=== PATIENT | male | born 1960 | race Caucasian/White ===

== ENCOUNTER → 2018-11-22 09:28 | Outpatient (CLI) | payer OTHER, SELFPAY ==
--- NOTE | 2018-11-22 09:35 | US_ITS ---
US FNA Thyroid HISTORY: Left thyroid mass ORDERING PHYSICIAN: Daryl Sampson MD PATIENT AGE: 58 years COMPARISON: None Prebiopsy ultrasound: The right lobe of the thyroid gland is enlarged at 4 x 2.4 cm with 2 solid-appearing nodules at 1.7 cm and a second nodule at 2.3 cm. The left lobe is enlarged 6.9 x 4.5 x 4.2 cm cm with heterogeneous echogenicity. There is multinodular contour with a dominant nodule in the mid polar region 5.5 x 4 cm with calcification centrally. This was the nodule that was targeted for biopsy. TECHNIQUE: Following obtaining informed consent, using aseptic technique and local anesthesia with buffered lidocaine, fine-needle aspiration was performed of the nodule of interest using sonographic guidance. 3 passes were made into the nodule with a 21 needle. Specimen was given to cytology. The patient tolerated the procedure well without evidence of immediate complications and left the ultrasound suite in stable condition. CYTOLOGY:Atypical IMPRESSION: Uneventful ultrasound-guided fine needle aspiration of left thyroid nodule showing atypical cytology.
== END ==
PROVIDERS: PCP Family Medicine; Visit Provider Otolaryngology
DX: E07.9 Disorder of thyroid, unspecified (principal)
CPT/HCPCS: 10005; 76536; 76942

== ENCOUNTER → 2018-11-30 12:05 | Outpatient (CLI) | payer OTHER, SELFPAY ==
--- NOTE | 2018-11-30 12:25 | XR_ITS ---
XR chest 2V HISTORY: ITS.REASON: HTN,COUGH ORDERING PHYSICIAN: Daryl Sampson MD PATIENT AGE: 58 years COMPARISON: None FINDINGS: The cardiomediastinal silhouette and pulmonary vascularity are within normal limits. The lungs are clear without infiltrates, suspicious nodules, or pleural effusions. No acute bony abnormalities. IMPRESSION: Negative chest, no acute finding
[2018-11-30 12:44] LABS: Basophils # 0.1 K/mm3 (0-0.2); Basophils % 0.8 % (0.1-2.0); Eosinophils # 0.1 K/mm3 (0.0-0.4); Eosinophils % 1.7 % (0.1-12.0); Hematocrit 47.8 % (42.0-52.0); Hemoglobin 15.1 g/dL (14.1-18.0); Lymphocytes # 1.7 K/mm3 (0.7-4.5); Lymphocytes % 28.8 % (10-50); Mean Corpuscular HGB Conc 31.6 g/dL (31.8-35.4); Mean Corpuscular Hemoglobin 27.6 pg (27.0-31.2); Mean Corpuscular Volume 87.3 fl (80-94); Mean Platelet Volume 7.2 fl (7.4-10.4); Monocytes # 0.5 K/mm3 (0.1-1.0); Monocytes % 7.7 % (1.7-9.3); Neutrophils # 3.7 K/mm3 (1.8-7.8); Neutrophils % 60.9 % (37.0-80.0); Platelet Count 261 K/mm3 (142-424); Red Blood Count 5.47 M/mm3 (4.60-6.20); Red Cell Distribution Width 13.9 % (11.5-17.5)
[2018-11-30 15:26] LABS: Alanine Aminotransferase 37 U/L (12-78); Albumin Level 3.7 gm/dL (3.4-5.0); Alkaline Phosphatase 84 U/L (46-116); Anion Gap 11.4 mEq/L (5-15); Aspartate Amino Transferase 20 U/L (15-37); Bilirubin,Total 0.4 mg/dL (0.2-1.0); Blood Urea Nitrogen 14 mg/dL (7-18); Calcium 9.3 mg/dL (8.5-10.1); Carbon Dioxide 27 mmol/L (21.0-32.0); Chloride 107 mmol/L (98-107); Creatinine,Serum 0.92 mg/dL (0.70-1.30); Estimated Glomerular Filt Rate 84 ml/min (>60); Free T4 (Free Thyroxine) 0.73 ng/dl (0.76-1.46); GFR (African American) 102 ML/MIN (>60); Globulin 3.6 gm/dl (1.3-3.2); Glucose 74 mg/dL (74-106); Potassium 4.4 mmoL/L (3.5-5.1); Sodium 141 mmol/L (136-145); Thyroid Stimulating Hormone 2.07 uIU/ml (0.358-3.740); Total Protein,Serum 7.3 gm/dL (6.4-8.2)
== END ==
PROVIDERS: Visit Provider Otolaryngology
DX: Z01.818 Encounter for other preprocedural examination (principal); D49.7 Neoplasm of unspecified behavior of endocrine glands and other parts of nervous system
CPT/HCPCS: 36415; 71046; 80053; 84439; 84443; 85025; 93005

== ENCOUNTER 2018-12-28 10:15 | Observation (INO) ==
--- NOTE | 2018-12-28 11:06 | Progress Note ---
[facility] Anesthesia Checklist - Patient Identification Patient Identification: Arm Band - Structural Data Admitted From: Home Planned Operative Procedure/s: thyroidectomy Consent for Planned Operative Procedure(s) Verified: Yes Verified Documents: Surgical Consent, History and Physical, Cardiac Clearance - Additional verifications Anesthesia Reactions: No Hx Blood Transfusions: No Blood Transfusion Reaction: No - Airway Assessment C-Spine Mobility Assessed: Yes (mp2) TMJ Mobility Assessed: Yes Dentition: Good Dentition - Neurological Assessment Level of Consciousness: Awake, Alert - Anesthesia Plan Anesthesia Risk discussed: Yes Anesthesia Plan: Verified ASA Class: II Anesthesia Type: General [facility] History I have reviewed the patient's past medical history: Yes Medical History: Reports:: 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 No: Pacemaker Amputation: No Fractures: Yes - *Social History Educational Level: Completed Grade School Smoking Status: Never smoker Alcohol Intake: never Substance Use Type: denies use *Occupational Status:: employed Housing: house Household Members: none *Travel in the last 8 weeks: Inside the [place] Family Hx:: Cancer, Heart Attack, Coronary Artery Disease
--- NOTE | 2018-12-28 14:24 | Operative Note ---
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 An Extended thyroid incision was marked out and skin and subcutaneous tissue and platysma were incised. There was a large left thyroid mass with displacement of the trachea to the right side. The sternomastoid muscles were identified in each side and retracted and the strap muscles were divided on each side. The large left thyroid mass extended substernally and dissection was commenced superiorly and the superior vascular pedicle was mobilized and doubly ligated. The left middle thyroid vein was then doubly ligated and divided. With difficulty it was possible to mobilize the inferior component of the tumor in the superior mediastinal area and bring it up into the neck. It was then possible to identify the left recurrent laryngeal nerve and the left nerve was stimulated on a positive basis on several occasions. The left inferior thyroid artery was mobilized doubly ligated and divided, the gland was then from the trachea and the left lobe was resected in entirety including the isthmus on and the gland was transected along the medial aspect of the right lobe. The transection was oversewn with 2-0 Vicryl. Surgicel snow was placed in the paratracheal area on the left side and the strap muscles were repaired with 2-0 Vicryl the platysma and subcutaneous layer was repaired with 2-0 Vicryl. #10 Mike-Mcduffie drain was placed and hooked to suction. Dressings were applied and the patient was sent to recovery in good general condition. Condition: stable Disposition: PACU Complications:: none
--- NOTE | 2018-12-28 14:36 | Progress Note ---
[facility] Anesthesia Record Part I Intake, IV Amount: 2,000 Estimated blood loss (mL): 50 Urine output (mL): 0 Blood Pressure: 145/94 SaO2: 96 Pulse Rate: 67 Respiratory Rate: 12 Temperature: 97 F Patient is:: Drowsy, Stable Stable to PACU at:: 14:30
--- NOTE | 2018-12-28 14:36 | Progress Note ---
[facility] Anesthesia Record Part II Discharge Time: 15:00 Destination: floor PACU nurse assessment reviewed?: Yes Patient Condition:: Good Anesthesia Complications:: None Swallowing reflex intact?: Yes Cyanosis?: No
--- NOTE | 2018-12-29 07:32 | Pharmacy Consult Notes ---
[facility] Pharmacy VTE Monitoring - Patient Demographics Admission date: 12/29/18 Report Date: 12/29/18 Time: 07:32 Allergies/Adverse Reactions: Patient Allergies acetaminophen [From Tylenol] Adverse Reaction (Verified 12/28/18 17:02) Height: 1.83 m Weight: 104.644 kg - VTE Risk Was VTE Risk Assessment Performed: Yes VTE Score: 2 VTE Risk Level: Very Low Risk Clinical Trial Participant: No - Prophylaxis VTE Prophylaxis Ordered?: Yes Types of VTE Prophylaxis: TEDS Knee High
--- NOTE | 2018-12-29 09:43 | Discharge Summary ---
General - General Admission date:: 12/28/18 Discharge date: 12/29/18 HPI HPI: Pt presented with large thyroid mass which was displacing the trachea to the right. a total left thyroid lobectomy was preformed using the cervical approach Hospital Course Hospital Course: Pt was admitted overnight after total left thyroid lobectomy on 12/28/18- pt was stable throughout the night and is stable for discharge today. Objective Vital signs: Temp Pulse Resp BP Pulse Ox 98.2 F 87 19 165/90 H 95 12/29/18 04:53 12/29/18 04:53 12/29/18 04:53 12/29/18 04:53 12/29/18 04:53 no acute distress - *Routine HEENT Exam Eye: Present: PERRL ENT: Present: mucous membranes moist - *Routine Neck Exam Present: supple Comments: incision site noted lower neck - kim drain removed without difficulty- site covered with telfa/tegaderm dressing. pt tolerated well. no signs of infection or bleeding. - *Routine Skin Exam Present: intact - Detailed ENT Exam Nasal/Nares: Bilateral normal inspection - Detailed Neck Exam: Thyroids Thyroid: Present: tenderness Neck image: 1 - incision site- telfa/tegaderm dsg. CDI Results Labs on day of discharge: Labs from last 24 hours 12/29/18 06:43 Calcium 9.0 DS: Diagnosis - Discharge Diagnosis (1) Nodule of left lobe of thyroid gland Status: Acute Discharge Plan - Patient Discharge Instructions ACTIVITY: No heavy lifting, Up with assistance DIET: advance to your usual diet - Follow up Plan Follow up with: Daryl Sampson MD [Staff Physician] - 01/04/19 1:45 pm Disposition: Home, Self-Intermediate Medications: Home Medications Medication Instructions Recorded Confirmed Type No Known Home Medications 11/02/18 12/27/18 History Prescriptions/Medication Reconciliation: New Calcium Carbonate/Vitamin D3 [Oscal +D 500mg Tab] 500 mg PO BID tablet Hydrocod/Acet 5/325 mg [[place] 5/325mg tablet] 1 tab PO Q6HP PRN tablet PRN Reason: Mild To Moderate Pain Continued No Known Home Medications - Problem Reconciliation Problems Reviewed?: Yes
== END 2018-12-29 10:49 | disposition home or self-care (01) ==
LOC: OR 10:15 → 2ND 10:15
PROVIDERS: ADMIT Otolaryngology; ATTEND Otolaryngology
DX: C73 Malignant neoplasm of thyroid gland
CPT/HCPCS: 36415; 82310; 96374; 96375; G0378; J2310; J2405

== ENCOUNTER → 2019-01-18 16:27 | Outpatient (CLI) | payer OTHER, SELFPAY ==
--- NOTE | 2019-01-18 16:46 | XR_ITS ---
PROCEDURE: XR CHEST 2V CLINICAL HISTORY: SOB Shortness of air COMPARISON: from 11/30/2018 FINDINGS: The cardiomediastinal silhouette and pulmonary vascularity are within normal limits. The lungs are clear without infiltrates, suspicious nodules, or pleural effusions. No acute bony abnormalities. IMPRESSION: No acute findings. Dictated by: Jamie Avila MD 01/18/2019 17:40 Signed by: <Electronically signed by Jamie Avila MD in [place]> 01/18/2019 17:40
--- NOTE | 2019-01-18 17:15 | ECG_ITS ---
APPROVED REPORT Exam: Resting ECG HR:60 bpm ECG Measurements Heart Rate 60 AXES DE 202 P 16 QRSd 122 QRS -25 QT 466 T 11 QTc 466 <Conclusion> Normal sinus rhythm Nonspecific intraventricular conduction delay Borderline ECG Electronically signed by : Rex Jones, 01/20/2019 07:52:53
[2019-01-18 17:36] LABS: Basophils % 0.5 % (0.1-2.0); Eosinophils # 0.1 K/mm3 (0.0-0.4); Eosinophils % 1.6 % (0.1-12.0); Hemoglobin 15.8 g/dL (14.1-18.0); Lymphocytes # 1.8 K/mm3 (0.7-4.5); Lymphocytes % 26.8 % (10-50); Mean Corpuscular HGB Conc 31.7 g/dL (31.8-35.4); Mean Corpuscular Hemoglobin 28.8 pg (27.0-31.2); Mean Corpuscular Volume 90.9 fl (80-94); Mean Platelet Volume 7.6 fl (7.4-10.4); Monocytes # 0.5 K/mm3 (0.1-1.0); Monocytes % 6.9 % (1.7-9.3); Neutrophils # 4.3 K/mm3 (1.8-7.8); Neutrophils % 64.3 % (37.0-80.0); Platelet Count 286 K/mm3 (142-424); Red Cell Distribution Width 13.8 % (11.5-17.5); White Blood Count 6.7 K/mm3 (4.8-10.8)
[2019-01-18 19:23] LABS: Anion Gap 10.5 mEq/L (5-15); Blood Urea Nitrogen 17 mg/dL (7-18); Calcium 9.2 mg/dL (8.5-10.1); Carbon Dioxide 29 mmol/L (21.0-32.0); Chloride 105 mmol/L (98-107); Creatinine,Serum 0.93 mg/dL (0.70-1.30); Estimated Glomerular Filt Rate 83 ml/min (>60); Free T4 (Free Thyroxine) 0.92 ng/dl (0.76-1.46); GFR (African American) 100 ML/MIN (>60); Glucose 86 mg/dL (74-106); Potassium 4.5 mmoL/L (3.5-5.1); Sodium 140 mmol/L (136-145); Thyroid Stimulating Hormone 2.34 uIU/ml (0.358-3.740)
== END ==
PROVIDERS: Visit Provider Otolaryngology
DX: Z01.818 Encounter for other preprocedural examination (principal); D49.7 Neoplasm of unspecified behavior of endocrine glands and other parts of nervous system
CPT/HCPCS: 36415; 71046; 80048; 84439; 84443; 85025; 93005

== ENCOUNTER 2019-02-08 09:34 | Observation (INO) ==
--- NOTE | 2019-02-08 12:55 | Progress Note ---
[facility] Anesthesia Record Part I Intake, IV Amount: 900 Estimated blood loss (mL): 30 Urine output (mL): 0 Blood Products used (#): none Blood Pressure: 157/96 SaO2: 93 Pulse Rate: 71 Respiratory Rate: 16 Temperature: 97.0 F Patient is:: Drowsy, Nasal O2, Oral/Nasal airway, Stable Stable to PACU at:: 11:50
--- NOTE | 2019-02-08 12:55 | Progress Note ---
[facility] Anesthesia Record Part II Discharge Time: 13:20 Destination: Medical Surgical Department PACU nurse assessment reviewed?: Yes Patient Condition:: Good Anesthesia Complications:: None Swallowing reflex intact?: Yes Cyanosis?: No
--- NOTE | 2019-02-08 14:50 | Pharmacy Consult Notes ---
[facility] Pharmacy VTE Monitoring - Patient Demographics Admission date: 02/08/19 Report Date: 02/08/19 Time: 14:50 Allergies/Adverse Reactions: Patient Allergies acetaminophen [From Tylenol] Adverse Reaction (Mild, Verified 02/08/19 09:45) Nausea Height: 1.83 m Weight: 108.012 kg - Prophylaxis VTE Prophylaxis Ordered?: Yes Types of VTE Prophylaxis: IPCS Thigh High Location of Applied Device: Bilateral Lower Extremeties - VTE Diagnosis Confirmed Treatment or plan recommended: Continue Current Treatment
--- NOTE | 2019-02-08 16:49 | Operative Note ---
Date of procedure: 02/08/19 Pre-op Diagnosis:: Malignant neoplasm thyroid Post-op Diagnosis:: same Procedure performed:: Total thyroidectomy for malignancy and lymph node exploration Surgeon:: Daryl Sampson MD TOBACCO BUYER:: Aleksandar Duque Anesthesia: GETA Estimated blood loss (mL): 24 Operative findings:: same Operative note:: With the patient under general anesthesia, maintained with a nerve monitoring endotracheal tube, having been given 2 g of Ancef and 12 mg of Decadron, the neck was prepped with Betadine and draped. The previous thyroid incision was opened on the right side and skin platysma and subcutaneous tissue was elevated. The strap muscles on the right side were mobilized and divided. The sternomastoid muscle was identified, and from the thyroid mass which was extending into the prevertebral space resulting in significant lateral displacement of the common carotid artery and internal jugular vein. The internal jugular vein was at least 1.5 cm in diameter. With care the right thyroid mass was from the common carotid artery and from the right internal jugular vein. And at that point the superior vascular pedicle could be identified, mobilized, ligated, and divided. The middle thyroid vein was then identified and it was doubly ligated and divided and was very very large. At th at point it was possible to access the inferior thyroid veins and they were doubly ligated and divided. The inferior parathyroid gland on the right side was identified and retained in situ. As was the superior parathyroid gland. The inferior thyroid artery and the right recurrent laryngeal nerve were identified. The nerve was followed through the larynx where it entered through the cricothyroid membrane and stimulated in a positive fashion on several occasions. The right inferior thyroid artery was doubly ligated and divided. It was then possible to divide Daniel's ligament and separate the right lobe of the thyroid from the trachea. The right lobe of the thyroid was then removed in entirety and submitted for routine pathology. The right and medial aspect of the left side of the neck were then thoroughly examined for presence of enlarged lymph nodes and no lymph nodes were enlarged- all the lymph nodes that were identified were subcentimeter and accordingly none of them were sampled. Bleeding was less than 30 cc and stopped with cautery. The wound was thoroughly irrigated, Surgicel snow was placed in the prevertebral area on the right side, Bloodloss was less than 30 cc. The strap muscles were repaired with 2-0 Vicryl and the platysma, subcutaneous layer, and skin were repaired with 2-0 Vicryl and Dermabond was applied to the skin. A dressing was applied, as well as a BEBETO 10 drain inserted, and the patient was sent to recovery in good general condition. Condition: stable Disposition: PACU Complications:: none
--- NOTE | 2019-02-09 10:19 | Discharge Summary ---
General - General Admission date:: 02/08/19 Discharge date: 02/09/19 HPI HPI: This pt had completion total thyroid with lymph node exploration for malignant disease Hospital Course Hospital Course: admitted overnight for observation- pt tolerated well- fit for discharge Objective Vital signs: Temp Pulse Resp BP Pulse Ox 97.8 F 70 18 140/84 99 02/09/19 08:00 02/09/19 08:00 02/09/19 08:00 02/09/19 08:00 02/09/19 08:00 - Detailed Neck Exam: Thyroids Thyroid: Present: tenderness Comments: thyroid excision site noted- dressing changed and kim drain removed- t tolerated well. site covered back with talfa/tegaderm dressing. DS: Diagnosis - Discharge Diagnosis (1) Status post complete thyroidectomy Start date: 02/08/19 Start time: 10:19 Status: Acute Discharge Plan - Patient Discharge Instructions ACTIVITY: Ambulate as tolerated DIET: continue same diet Patient Instructions: Thyroidectomy, DI for Thyroidectomy, DI for Surgical Site Infection - Follow up Plan Follow up with: Daryl Sampson MD [Staff Physician] - Disposition: Home, Self-Retirement Medications: Home Medications Medication Instructions Recorded Confirmed Type Levothyroxine Sodium 100 mcg PO DAILY 02/07/19 02/08/19 History [Levothyroxine 100mcg (0.1MG) Tab] Prescriptions/Medication Reconciliation: New Levothyroxine Sodium [Synthroid 150mcg (0.15mg) tablet] 150 mcg PO DAILY tablet Hydrocod/Acet 5/325 mg [[place] 5/325mg tablet] 1 tab PO Q6HP PRN tablet PRN Reason: Mild Pain Calcium Carbonate/Vitamin D3 [Oscal +D 500mg Tab] 500 mg PO BID tablet Changed Levothyroxine Sodium [Levothyroxine 100mcg (0.1MG) Tab] 150 mcg PO DAILY #0 - Problem Reconciliation Problems Reviewed?: Yes
== END 2019-02-09 10:52 | disposition home or self-care (01) ==
LOC: OR 09:34 → 2ND 09:34
PROVIDERS: ADMIT Otolaryngology; ATTEND Otolaryngology
DX: C73 Malignant neoplasm of thyroid gland
CPT/HCPCS: 96372; 96374; G0378; J0330; J2704